=== PATIENT | male | born 1995 | race African-American/Black ===

== ENCOUNTER 2023-10-28 23:06 | Emergency (ER) | payer OTHER ==
[2023-10-28 23:36] VITALS: BP 137/78
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
[2023-10-29] MEDS ORDERED: IBUPROFEN 600 MG TABLET PO STA (00:04)
[2023-10-29] MEDS ORDERED: ACETAMINOPHEN 500 MG TABLET PO STA (00:05)
[2023-10-29] MEDS ORDERED: methocarbamoL 500 MG TABLET PO STA (00:05)
[2023-10-29] MEDS ORDERED: HYDROcod/ACET 5/325 Prepack 4 PO STA (00:05)
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
[2023-10-29] MEDS ORDERED: CYCLOBENZAPRINE 10 MG Prepack 2 PO PRN (01:22)
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
[2023-10-29 01:53] VITALS: O2SAT 98
== END 2023-10-29 01:52 | disposition home or self-care (01) ==
LOC: ED 23:06
DX: S93.402A Sprain of unspecified ligament of left ankle, initial encounter (principal); S16.1XXA Strain of muscle, fascia and tendon at neck level, initial encounter; V89.2XXA Person injured in unspecified motor-vehicle accident, traffic, initial encounter; Y92.488 Other paved roadways as the place of occurrence of the external cause; Z79.899 Other long term (current) drug therapy
CPT/HCPCS: 72125; 72128; 73610; 99284; A9270